=== PATIENT | male | born 1970 | race Two or more races ===

== ENCOUNTER → 2022-09-17 | Emergency (ER) | payer OTHER ==
[~2022-09-17] VITALS: Ht 167.6 cm; Wt 86.2 kg
[~2022-09-17] MED LIST: CIPRO500 MG PO
== END | disposition home or self-care (01) ==
LOC: ER 21:24
DX: S91.312A Laceration without foreign body, left foot, initial encounter (principal); W26.8XXA Contact with other sharp object(s), not elsewhere classified, initial encounter; Y93.89 Activity, other specified; Y92.89 Other specified places as the place of occurrence of the external cause; Y99.9 Unspecified external cause status

== ENCOUNTER → 2022-09-24 | Emergency (ER) | payer OTHER | END | disposition home or self-care (01) | LOC: ER 09:24 | DX: Z48.02 Encounter for removal of sutures (principal) ==

== ENCOUNTER 2022-09-30 10:03 | Emergency (ER) | payer OTHER ==
[~2022-09-30] VITALS: Ht 167.6 cm; Wt 86.2 kg
== END 2022-09-30 12:12 ==
LOC: ER 10:03
DX: Z48.02 Encounter for removal of sutures (principal)